=== PATIENT | female | born 1975 | race Caucasian/White ===

== ENCOUNTER 2021-06-26 15:20 | Emergency (ER) | payer OTHER ==
--- NOTE | 2021-06-26 16:43 | EDM.PDOC ---
ED HPI GENERAL MEDICAL PROBLEM - General Chief Complaint: Abdominal Pain Stated Complaint: RT SIDE FLANK PAIN Time Seen by Provider: 06/26/21 16:40 - History of Present Illness INITIAL COMMENTS - FREE TEXT/NARRATIVE: 45-year-old female presents to the emergency room with abdominal pain. This pain started this morning it reminded her an awful lot of when she has been constipated in the past. She took a third of a bottle of mag citrate without any success. Pain seems to be left upper quadrant and extending downward. This pain does not go into her pelvis or lower abdomen however. The patient has had problems like this in the past. She has not have any breathing difficulties no chest pain chest pressure. No flank pain appetite is diminished but no nausea or vomiting. Abdominal Pain Score (Numeric/FACES): 7 - Related Data Allergies Allergy/AdvReac Type Severity Reaction Status Date / Time No Known Allergies Allergy Verified 06/26/21 16:04 Home Meds: Home Meds Citalopram [Citalopram HBr] 40 mg PO DAILY 06/26/21 [History] buPROPion HCL [Bupropion Xl] 300 mg PO DAILY 06/26/21 [History] Past Medical History Gastrointestinal History: Reports: Gastritis Psychiatric History: Reports: Anxiety, Depression - Infectious Disease History Infectious Disease History: Reports: Novel Coronavirus Social & Family History - Tobacco Use Tobacco Use Status *Q: Never Tobacco User Second Hand Smoke Exposure: No - Caffeine Use Caffeine Use: Reports: Coffee, Soda - Recreational Drug Use Recreational Drug Use: No ED ROS GENERAL - Review of Systems Review Of Systems: See Below Constitutional: Reports: No Symptoms HEENT: Reports: No Symptoms Respiratory: Reports: No Symptoms Cardiovascular: Reports: No Symptoms GI/Abdominal: Reports: Abdominal Pain, Constipation, Decreased Appetite. Denies: Nausea, Vomiting : Reports: No Symptoms Musculoskeletal: Reports: No Symptoms Skin: Reports: No Symptoms ED EXAM, GENERAL - Physical Exam Exam: See Below Exam Limited By: No Limitations General Appearance: Alert, No Apparent Distress, Other (Is more comfortable laying on her left side) Head: Atraumatic, Normocephalic Neck: Normal Inspection, Supple, Non-Tender, Full Range of Motion Respiratory/Chest: No Respiratory Distress, Lungs Clear, Normal Breath Sounds, No Accessory Muscle Use, Chest Non-Tender Cardiovascular: Regular Rate, Rhythm, No Edema, No Murmur GI/Abdominal: Normal Bowel Sounds, Soft, Tender (Left upper quadrant tenderness this extends down not into the lower abdomen or pelvis area. And seems to start just lateral to the mid epigastric area). No: Guarding, Rigid, Rebound Back Exam: Normal Inspection. No: CVA Tenderness (L), CVA Tenderness (R) Extremities: Normal Inspection, No Pedal Edema Neurological: Alert, Oriented, Normal Cognition Course - Vital Signs Last Recorded V/S: Last Vital Signs Temp 36.1 C 06/26/21 16:02 Pulse 85 06/26/21 16:02 Resp 18 06/26/21 16:02 BP 171/95 H 06/26/21 16:02 Pulse Ox 99 06/26/21 16:02 - Orders/Labs/Meds Meds: Medications Discontinued Medications Generic Name Dose Route Start Last Admin Trade Name Gladys PRN Reason Stop Dose Admin Magnesium Citrate 296 ml 06/26/21 17:18 Magnesium Citrate Solution 296 Ml Bottle PO 06/26/21 17:19 ONETIME ONE - Re-Assessments/Exams Free Text/Narrative Re-Assessment/Exam: 06/26/21 17:33 An x-ray was done before I could evaluate the patient and she has dense stool pattern from the mid transverse colon to the mid descending colon before the sigmoid. I discussed the findings with the patient and her and offered to do further testing and they would like to try some mag citrate and go home. They do agree to return to the emergency room with any worsening symptoms or if she is not better soon. I think this is a reasonable approach. I will discharge him with 1 bottle of mag citrate she has two thirds of a bottle remaining at home she will take the full bottle when she gets home and that the remaining in the morning if needed. Departure - Departure Time of Disposition: 17:34 Disposition: Home, Self-Care 01 Clinical Impression: Abdominal pain, Constipation - Discharge Information Referrals: Jen Breaux NP [Primary Care Provider] - Forms: ED Department Discharge Additional Instructions: Return to the emergency room with any questions problems or worsening symptoms return immediately if your symptoms are getting worse or if you are not significantly better in 24 hours Go home drink the full bottle of mag citrate that I sent you home with. Allow it to cool or serve it over ice. If you do not get the desired effect take the remaining partial bottle you have at home first thing in the morning. If if at anytime you feel as though you are getting worse or developing new symptoms return immediately to the emergency room. Sepsis Event Note (ED) - Focused Exam Vital Signs: Vital Signs Temp Pulse Resp BP Pulse Ox 06/26/21 16:02 36.1 C 85 18 171/95 H 99
[2021-06-26] MEDS ORDERED: Magnesium Citrate Solution 296 ML Bottle PO ONE (17:18)
--- NOTE | 2021-06-26 17:23 | CR ---
Abdomen: Supine and upright views of the abdomen were obtained. Comparison: No prior abdominal imaging is available. Mild stool is seen within the left colon and distal transverse colon. Bowel gas pattern is unremarkable. IUD is noted within the pelvis. Bony structures are within normal limits for the patient's age. No discrete free air is seen. Impression: 1. Stool within the transverse and left colon with bowel gas pattern appearing unremarkable. 2. IUD. Diagnostic code #2
== END 2021-06-26 17:44 | disposition home or self-care (01) ==
LOC: JD.ED 15:20
DX: K59.00 Constipation, unspecified (principal); Z86.16 Personal history of COVID-19
CPT/HCPCS: 74019; 99284; A9270